=== PATIENT | female | born 1965 | race Caucasian/White ===

== ENCOUNTER 2017-02-28 11:19 | Emergency (ER) | payer OTHER, BC ==
[~2017-02-28] VITALS: Ht 152.4 cm; Wt 90.9 kg
[2017-02-28 13:38] VITALS: BP 145/88
== END 2017-02-28 13:39 | disposition home or self-care (01) ==
LOC: EME 11:19
DX: S50.02XA Contusion of left elbow, initial encounter (principal); V89.2XXA Person injured in unspecified motor-vehicle accident, traffic, initial encounter; I10 Essential (primary) hypertension
CPT/HCPCS: 73080; 99281; 99283